=== PATIENT | male | born 1995 | race Hispanic/Latino ===

== ENCOUNTER 2017-10-19 20:47 | Emergency (ER) | payer SELFPAY ==
[~2017-10-19] VITALS: Ht 175.3 cm; Wt 95.3 kg
[2017-10-19 20:50] VITALS: BP 147/90
--- NOTE | 2017-10-19 21:05 | ED GI/GU/ABDOMINAL COMPLAINT ---
History of Present Illness General Chief Complaint: General Adult Stated Complaint: "TO CHECK MY BODY TO SEE IF I'M OKAY" Source: patient Exam Limitations: language barrier Vital Signs & Intake/Output Vital Signs & Intake/Output Vital Signs Date Time Temp Pulse Resp B/P B/P Pulse O2 O2 Flow FiO2 Mean Ox Delivery Rate 10/19 2049 98.2 100 20 147/90 97 Room Air ED Intake and Output 10/20 0000 10/19 1200 Intake Total Output Total Balance Patient 210 lb Weight Weight Reported by Patient Measurement Method Allergies Coded Allergies: No Known Allergies (10/19/17) Triage Note: TRIAGE: PT TO ER C/C PAIN TO PENIS x 3 DAYS. DENIES DISCHARGE. REPORTS +SEXUALLY ACTIVE, DID NOT USE CONDOM "THE LAST TIME" WHICH WAS TUESDAY. PAIN IS NOT WORSE WITH URINATION. Triage Nurses Notes Reviewed? yes Onset: Abrupt Duration: day(s): Timing: recent history Location: penile Radiation: no radiation HPI: 22-year-old male comes into the emergency room for further evaluation of pain. Patient reports she was sexually active in 3 days ago. Denies any discharge or burning with urination. He feels little discoloration to his penis that he wants to get checked out. No testicular pain. (Shaheed Real) Past History Travel History Traveled to [place] past 21 day No Medical History Any Pertinent Medical History? 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 No (Shaheed Real) Review of Systems Review of Systems Constitutional: Reports: no symptoms. EENTM: Reports: no symptoms. Respiratory: Reports: no symptoms. Cardiovascular: Reports: no symptoms. GI: Reports: no symptoms. Genitourinary: Reports: see HPI. Musculoskeletal: Reports: no symptoms. Skin: Reports: no symptoms. Neurological/Psychological: Reports: no symptoms. Hematologic/Endocrine: Reports: no symptoms. Immunologic/Allergic: Reports: no symptoms. All Other Systems: Reviewed and Negative (Shaheed Real) Physical Exam Physical Exam General Appearance: well developed/nourished, no apparent distress, alert, awake Head: atraumatic Eyes: Bilateral: normal appearance. Ears, Nose, Throat, Mouth: hearing grossly normal, moist mucous membrane Neck: normal inspection Respiratory: no respiratory distress Gastrointestinal: not examined Male Genitals: normal genitalia, normal inspection, no discharge, Back: normal inspection Extremities: normal range of motion Neurologic/Psych: awake, alert, oriented x 3 Core Measures ACS in differential dx? No Sepsis Present: No Sepsis Focused Exam Completed? No (Shaheed Real) Progress Differential Diagnosis: STD, ureterolithiasis, urinary retention, urethritis, UTI/pyelo, herpes, syphilis, Plan of Care: Orders Procedure Date/time Status CHLAMYDIA-GC DNA PROBE 10/19 2105 Active Microbiology 10/19 2108 URINE ROUT: GC DNA Probe - RECD 10/19 2108 URINE ROUT: Chlamydia DNA Probe (ARON) - RECD Initial ED EKG: none (Shaheed Real) Departure Departure Disposition: HOME OR SELF CARE Condition: Stable Clinical Impression Primary Impression: Penile pain Referrals: Patient Has No Primary Care Dr (PCP/Family) Additional Instructions: Follow-up with your primary care doctor. Return if any concerns worsening symptoms. Please go over all results of today's visit with your primary care doctor. Contact your primary care doctor to let them know you were here in the emergency room. There may be nonspecific findings which may not be related to your visit today here in the emergency room but may require further evaluation and chronic monitoring by your primary care doctor. If you had a laceration today the chance of foreign body always remains. You should follow-up with your primary care doctor for recheck in 3-5 days for a wound check. If you had an x-ray done there is a chance that a fracture could have been missed on initial read and you should follow-up with your primary care doctor for repeat x-rays if symptoms persist. If your blood pressure was elevated here in the emergency room please have rechecked by [facility] primary care doctor within the next 48. If you were prescribed a narcotic here in the emergency room or any type of controlled substances you're not allowed to drive while taking this medication or operate any type of heavy machinery. Narcotics can make you feel lightheaded dizziness nausea and can cause constipation. You may need to citrus picker a stool softener. Thank you for choosing [facility] emergency room. Please return to the emergency room immediately if you have any other concerns worsening of symptoms. Departure Forms: Customer Survey General Discharge Information Comments 10/19/2017 9:57:24 PM Follow-up with PCP. Return if any other concerns worsening symptoms. (Evgeny TURPIN,Shaheed) PA/RN ENDOCRINOLOGY Co-Sign Statement Statement: ED Attending supervision documentation- [] I saw and evaluated the patient. I have also reviewed all the pertinent lab results and diagnostic results. I agree with the findings and the plan of care as documented in the PA's/RN ENDOCRINOLOGY's documentation. [x] I have reviewed the ED Record and agree with the PA's/RN ENDOCRINOLOGY's documentation. [] Additions or exceptions (if any) to the PAs/RN ENDOCRINOLOGY's note and plan are summarized below: [] (Yanira RALPH,Efraín Dee)
== END 2017-10-19 22:05 ==
LOC: ERH 20:47
DX: N48.89 Other specified disorders of penis (principal)
CPT/HCPCS: 87491; 87591; J0456; J0696

== ENCOUNTER 2017-10-21 21:01 | Emergency (ER) | payer OTHER ==
[2017-10-24] MEDS ORDERED: NYSTATIN15 GM TOP (00:40)
== END 2017-10-21 21:50 | disposition admitted as inpatient to this hospital (09) ==
LOC: ERH 21:01
DX: Z09 Encounter for follow-up examination after completed treatment for conditions other than malignant neoplasm (principal)

== ENCOUNTER 2017-11-06 10:35 | Emergency (ER) | payer SELFPAY ==
[~2017-11-06] VITALS: Ht 175.3 cm; Wt 93.9 kg
[~2017-11-06 10:35] MED LIST: NYSTATIN15 GM TOP
[2017-11-06 10:39] VITALS: BP 132/82
--- NOTE | 2017-11-06 10:48 | ED GENERAL ADULT ---
History of Present Illness General Chief Complaint: General Adult Stated Complaint: PT STATES"SOMETHING WITH MY LIPS" Source: patient Exam Limitations: no limitations Vital Signs & Intake/Output Vital Signs & Intake/Output Vital Signs Date Time Temp Pulse Resp B/P B/P Pulse O2 O2 Flow FiO2 Mean Ox Delivery Rate 11/06 1103 Room Air 11/06 1039 98.7 70 18 132/82 99 Room Air Allergies Coded Allergies: No Known Allergies (10/19/17) Reconcile Medications Nystatin 100,000 UNIT/GRAM OINT...G. 1 AXEL TOP TID BALINITIS apply to affected area(s) Triage Note: PT STATES HE WAS HERE 3 WEEKS AGO FOR A RED PENIS. PT STATES HE WAS GIVEN A CREAM AND THERE IS NO CHANGE. PT STATES HE HAD TO COME TO ED BECAUSE HE HAS BEEN WORKING AND HAD NOT TIME TO F/UP WITH PCP Triage Nurses Notes Reviewed? yes Onset: Abrupt Duration: week(s): (3), better, continues in ED Timing: recent history Injury Environment: home Severity: mild, moderate No Modifying Factors: none HPI: 22-year-old male with no medical history presents for reevaluation of redness on his penis. Patient has been seen herE multiple times for redness OF HIS PENIS. He was tested and treated for gonorrhea and chlamydia. He was given nystatin ointment for balanitis. Patient reports he feels like the redness has persisted. He has not called urology yet. He is also here with concerns of a lesion on his bottom lip that has been present for a few days. It is not painful he feels like it's going away. No fevers no penile discharge no urinary symptoms. He has not had sex since the redness started. (Casper Clement) Past History Travel History Traveled to [place] past 21 day No Medical History Any Pertinent Medical History? 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 No (Casper Clement) Review of Systems Review of Systems Constitutional: Reports: no symptoms. EENTM: Reports: see HPI. Respiratory: Reports: no symptoms. Cardiovascular: Reports: no symptoms. GI: Reports: no symptoms. Genitourinary: Reports: see HPI. Musculoskeletal: Reports: no symptoms. Skin: Reports: no symptoms. Neurological/Psychological: Reports: no symptoms. Hematologic/Endocrine: Reports: no symptoms. Immunologic/Allergic: Reports: no symptoms. All Other Systems: Reviewed and Negative (Casper Clement) Physical Exam Physical Exam General Appearance: well developed/nourished, no apparent distress, alert, awake Head: atraumatic, normal appearance Eyes: Bilateral: normal appearance, EOMI. Ears, Nose, Throat: normal pharynx, normal ENT inspection, hearing grossly normal, THERE APPEARS TO BE A FAINT HEALING ABSCESS ULCER ON THE INNER LOWER LIP ON THE LEFT SIDE. nO ERYTHEMA NO DISCHARGE NO SWELLING NO VESICLES Neck: normal inspection, supple, full range of motion Respiratory: normal breath sounds, chest non-tender, no respiratory distress, lungs clear Cardiovascular: regular rate/rhythm Gastrointestinal: soft, non-tender Back: normal inspection, normal range of motion Extremities: normal inspection, normal range of motion, no edema Neurologic/Psych: no motor/sensory deficits, awake, alert, oriented x 3, normal gait Skin: intact, normal color, warm/dry Lymphatic: NO INGUINAL LYMPHADENOPATHY, THERE IS NO REDNESS LESIONS OR DISCHARGE TO THE PENIS. nO PENILE DISCHARGE NO SWELLING NO TENDERNESS TO PALPATION NO INDURATION. nO TESTICULAR SWELLING OR TENDERNESS (.) Core Measures ACS in differential dx? No CVA/TIA Diagnosis: No Sepsis Present: No Sepsis Focused Exam Completed? No (Casper Clement) Progress Differential Diagnoses I considered the following diagnoses in my evaluation of the patient: [STD, balanitis, cellulitis, herpes virus CANKER SORE] Plan of Care: Patient is here for reevaluation of his penis. He has been applying nystatin ointment since the last time he was evaluated. On evaluation today there is no redness whatsoever no discharge exam of the penis and scrotum and testicles is completely normal. Patient has been tested and treated for gonorrhea and chlamydia testing was negative. He has been referred to urology but is not called yet. Advised patient that the exam is completely normal finish nystatin for the full course follow-up with urology. Patient declines further urinalysis urine STD testing. There is also no obvious oral lesions. Patient may have a healing canker sore on his bottom lip. He was instructed to use Tylenol or Motrin as needed for this apply ice. Discussed return precautions reassured the patient. Advised him again to follow up with urology. Initial ED EKG: none (Casper Clement) Departure Departure Disposition: HOME OR SELF CARE Condition: Stable Clinical Impression Primary Impression: Balanitis Secondary Impressions: Aphthae, oral Referrals: Patient Has No Primary Care Dr (PCP/Family) Chavo Mullen MD Additional Instructions: Follow-up with the urologist Dr. Mullen. Monitor symptoms return with any concerns. Use Tylenol or ibuprofen for pain in your lip. Departure Forms: Customer Survey General Discharge Information (Casper Clement) PA/WELDER OPERATOR Co-Sign Statement Statement: ED Attending supervision documentation- [] I saw and evaluated the patient. I have also reviewed all the pertinent lab results and diagnostic results. I agree with the findings and the plan of care as documented in the PA's/WELDER OPERATOR's documentation. [X] I have reviewed the ED Record and agree with the PA's/WELDER OPERATOR's documentation. [] Additions or exceptions (if any) to the PAs/WELDER OPERATOR's note and plan are summarized below: [] (Dulce Maria RALPH,Elias Hayward) Critical Care Note Critical Care Note Critical Care Time: non-applicable (Casper Clement)
== END 2017-11-06 11:03 ==
LOC: ERH 10:35
DX: N48.1 Balanitis (principal); K12.0 Recurrent oral aphthae
CPT/HCPCS: 99282